=== PATIENT | female | born 1995 | race Caucasian/White ===

== ENCOUNTER → 2019-09-18 | Outpatient (CLI) | payer OTHER ==
--- NOTE | 2019-09-18 18:33 | REP ---
Clinical: Anatomical evaluation. Comparison: None . Findings: Examination demonstrates a single live intrauterine in cephalic presentation. motion is identified by technologist. Placenta is noted anterior and grade II without evidence for placenta previa or abruption. Amniotic fluid volume is normal. Cervix measures 4.2 cm in length and appears closed. No evidence for nuchal cord. Gestational age by current measurements 26 weeks 2 days with DINA 12/23/2019 . FHR equals 153 beats per minute. Estimated weight 949 grams ( 48th percentile). Anatomical assessment demonstrates normal structures including cranium, choroid plexus, cavum, cerebellum/posterior fossa, facial features, lungs, four-chamber heart/ventricular outflow tracts, diaphragm, stomach, cord insertion/three-vessel cord, kidneys/bladder, spine, and extremities. Impression: Single live intrauterine in cephalic presentation demonstrating appropriate estimated weight. Anatomical assessment is complete and normal. No gross abnormalities are identified.
== END ==
LOC: M WHC 09:01
PROVIDERS: ATTEND Advanced Practice Midwife
DX: Z34.02 Encounter for supervision of normal first pregnancy, second trimester (principal); Z36.89 Encounter for other specified antenatal screening; Z3A.26 26 weeks gestation of pregnancy

== ENCOUNTER → 2019-10-02 | Outpatient (REF) | payer OTHER ==
[2019-10-02 14:00] LABS: HEMATOCRIT 32.4 % (36.0-47.0); MEAN CORPUSCULAR HEMOGLOBIN 31.3 pg (27.0-33.0); MEAN CORPUSCULAR VOLUME 92.3 fl (80.0-96.0); PLATELET COUNT, AUTOMATED 218 10^3/uL (150-450); RED BLOOD COUNT 3.51 10^6/uL (4.00-5.40); WHITE BLOOD COUNT 11.1 10^3/uL (4.0-10.0)
[2019-10-02 14:24] LABS: GLUCOSE CHALLENGE TEST 1 HOUR 81 MG/DL (LESS THAN 140)
[2019-10-03 10:21] LABS: HEPATITIS B SURFACE ANTIGEN NEGATIVE (NEGATIVE)
[2019-10-03 10:51] LABS: HIV 1&2 SCREEN CENTAUR NEGATIVE (NEGATIVE)
== END ==
LOC: M PLALAB 11:13
PROVIDERS: ATTEND Advanced Practice Midwife
DX: Z34.02 Encounter for supervision of normal first pregnancy, second trimester (principal)

== ENCOUNTER → 2019-11-19 | Outpatient (REF) | payer OTHER ==
[~2019-11-19] MED LIST: MULTTAB20 PO
== END ==
LOC: M PLALAB 15:38
PROVIDERS: ATTEND Advanced Practice Midwife
DX: Z3A.35 35 weeks gestation of pregnancy (principal)

== ENCOUNTER 2019-12-11 17:47 | Inpatient (IN) | payer OTHER ==
[2019-12-11] VITALS (24 sets, daily range): BP systolic 108–142; BP diastolic 56–92
[~2019-12-11] VITALS: Ht 162.6 cm; Wt 74.3 kg
[2019-12-11] MEDS ORDERED: LACTATED RINGER'S 1000 ML IV STA (18:12)
[2019-12-11 18:53] LABS: HEMOGLOBIN 12.4 g/dl (12.0-15.5); MEAN CORPUSCULAR HEMOGLOBIN 30.3 pg (27.0-33.0); MEAN CORPUSCULAR HGB CONC 34.4 g/dl (32.0-36.5); PLATELET COUNT, AUTOMATED 231 10^3/uL (150-450); RED BLOOD COUNT 4.09 10^6/uL (4.00-5.40); WHITE BLOOD COUNT 13.8 10^3/uL (4.0-10.0)
[2019-12-11] MEDS ORDERED: FENTANYL 2MCG/ML ROPIVACAINE 0.2% IN 0.9% NACL 100ML IVBAG As Ordered ONE (19:03)
[2019-12-11] MEDS ORDERED: OXYTOCIN 30 UNITS IN 0.9% NaCl 500ML IV BAG (J2590) As Ordered ONE (20:07)
--- NOTE | 2019-12-11 22:37 | HPEPDOC ---
Obstetrical History & Physical General Date of Admission Dec 11, 2019 at 18:10 History of Present Illness Miss Josue presents at 39 weeks with complaints of painful contractions. She is a 1, para 0. She denies any vaginal bleeding or leakage of fluid. Her course is remarkable for for transfer of care. Chief Complaint: Contractions, term Information Provided By: Patient Age: 24 : 1 Dating Final EDC: Dec 18, 2019 EGA at Admission: 39 Past Medical History Past Obstetrical History : Past Obstetrical History: [employer] History: No pertinent history Past Medical History Surgical History: Tonsilectomy, Other (surgery on her finger for reattachment) Social History Marital Status: Single Psychosocial History: No pertinent psych hx * Smoker: non-smoker Alcohol: Denies Drugs: denies Allergies Coded Allergies: Sulfa (Sulfonamide Antibiotics) (Verified Allergy, Unknown, Rash, 12/07/19) Medications Scheduled No122/Iron/Folic Acid ( Multi Tablet) 1 Each Tablet, 1 TAB PO DAILY Physical Examination Physical Examination GENERAL: Alert and oriented times three. BREAST: . ABDOMEN: Gravid and non-tender to touch. FETUS: Is vertex (VTX) by sterile vaginal examination (SVE), fetus is vertex (VTX) by Jose. HEART RATE: Regular rate and rhythm. LUNGS: Clear to auscultation (CTA). Vital Signs/I&O Vital Signs Date Time Temp Pulse Resp B/P (MAP) Pulse Ox O2 Delivery O2 Flow Rate FiO2 12/11/19 17:59 99.4 84 20 132/79 (96) Laboratory Data 24H LABS Laboratory Tests 2 12/11/19 18:35: Nucleated Red Blood Cells % (auto) 0.0 12/11/19 18:44: Serology Scanned Report Hepatitis B Testing CBC/BMP Laboratory Tests 12/11/19 18:35 Pertinent Laboratoy Data Blood Type: B+ RBC Antibody Screen: Negative HIV: Negative Hepatitis B: Negative Hepatitis C: Negative Group B Streptococcus: Negative Vaginal Examination Dilation: 5 cm Effacement: 80% Station: -1 Cervical Consistency: Soft Cervical Position: Anterior Presentation: Cephalic presentation Assessment Variability: Moderate Accelerations: Positive Tocometer Frequency: regular Assessment/Plan Assessment 24-year-old 1 at 39 weeks 1 days estimate gestational age here in active labor. Reassuring status Plan Admit and orient. Glove Presser and consent. Diet: Regular. Group B Streptococcus (GBS) negative. Labs and intravenous (IV) per unit protocol. Counseled on Pitocin and induction of labor (IOL). Anticipate normal spontaneous delivery (). C-S as appropriate. LARRY PFEIFFER MD. Dec 11, 2019 22:37
--- NOTE | 2019-12-11 22:38 | IPNPDOC ---
Obstetrical Progress Note Date of Service Dec 11, 2019 Subjective Comfortable following epidural Objective Vital Signs Date Time Temp Pulse Resp B/P (MAP) Pulse Ox O2 Delivery O2 Flow Rate FiO2 12/11/19 17:59 99.4 84 20 132/79 (96) Assessment Variability: Moderate Heart Rate Tracing: Category I Tocometer Contractions: Yes Frequency: regular Sterile Vaginal Examination Dilation: 9 cm Effacement (%): 100% Station: -1, 0 Cervical Consistency: Soft Cervical Position: Anterior (AROM, lightly stained meconium fluid) Postion/Presentation: Cephalic presentation Assessment and Plan Age: 24 : 1 Status: Reassuring Group B Streptococcus: Negative Anticipate: Vaginal Delivery LARRY PFEIFFER MD. Dec 11, 2019 22:38
[2019-12-12] MEDS ORDERED: OXYTOCIN DRIP 30 UNITS in IV 1 EA IV SCH (00:07)
--- NOTE | 2019-12-12 00:11 | DNPDOC ---
[facility] Delivery Note Delivery Note DATE OF DELIVERY: 12/11/2019 TIME OF : 2344 GENDER: Female. APGARS: 8 and 9. WEIGHT: 2930 grams or 6 pounds 7 ounces. LACERATIONS:. Right labial laceration ANESTHESIA: Epidural. ESTIMATED BLOOD LOSS: 300ml COUNTS: 5 laparotomy sponges accounted for prior to after delivery. One sharps removed delivery field. DELIVERY NOTE:. On 12/11/2019 at 2344, Mrs. Josue 24-year-old 1, now para 1, had a spontaneous vaginal delivery of viable female infant, Apgars, 8 and 9. Weight was 2930 g or 6 lbs. 7 oz. Head was delivered occiput anterior (O A), followed by delivery of the shoulders and corpus. Infant was handed to mom with a good cry. Cord was clamped times two and was cut by the father of baby under my direction. Placenta was then drained and delivered grossly intact. A premixed bag of 500 mL of normal saline with 30 units of Pitocin was then bolused along with uterine massage until the uterus was firm. On inspection, there was a right labial laceration which was repaired with 3-0 Vicryl. On reinspection, cervix, vagina, perineum was grossly intact and hemostatic. Mom and baby in recovery on stable condition. The couples decided to remain in daughter, LARRY Rodriguez MD. Dec 12, 2019 00:11
[2019-12-12] MEDS ORDERED: ACETAMINOPHEN 500 MG TAB PO PRN (00:15)
[2019-12-12] MEDS ORDERED: RHOGAM 300 MCG (1500 IU) INJ (J2790) IM SCH (00:15)
[2019-12-12] MEDS ORDERED: METHYLERGONOVINE MALEATE 0.2 MG TAB PO PRN (00:15)
[2019-12-12] MEDS ORDERED: DOCUSATE SODIUM 100 MG CAP PO PRN (00:15)
[2019-12-12] MEDS ORDERED: IBUPROFEN 600MG TAB PO PRN (00:15)
[2019-12-12] MEDS ORDERED: IBUPROFEN 800 MG TAB PO PRN (00:15)
[2019-12-12] MEDS ORDERED: DIBUCAINE 1% OINTMENT 30GM TOP PRN (00:15)
[2019-12-12] MEDS ORDERED: MEASLES,MUMPS,RUBELLA VACCINE INJ (MMR-II) (90707) SC SCH (00:15)
[2019-12-12] MEDS ORDERED: ACETAMINOPHEN TAB 650MG DOSE (2X325MG) PO PRN (00:15)
[2019-12-12] MEDS ORDERED: EPIDURAL/PCA KEYS XX PRN (00:30)
[2019-12-12] MEDS ORDERED: EPIDURAL COMMENT XX SCH (00:30)
[2019-12-12] MEDS ORDERED: diphenhydrAMINE 50MG/ML VIAL (J1200) IV PRN (00:30)
[2019-12-12] MEDS ORDERED: ONDANSETRON 4MG/2ML VIAL IV PRN (00:30)
[2019-12-12] MEDS ORDERED: NALOXONE INJ 0.4MG/1ML VIAL (J2310 PER 1MG) IV PRN (00:30)
[2019-12-12] MEDS ORDERED: ePHEDrine SULFATE 25 MG/5 ML(5MG/ML) SYRINGE IV PRN (00:30)
[2019-12-12] MEDS ORDERED: LACTATED RINGER'S 1000 ML IV PRN (00:30)
[2019-12-12] MEDS ORDERED: REFRIGERATOR IV KEYS XX PRN (00:30)
[2019-12-12 00:54] VITALS: BP 126/79
[2019-12-12] MEDS: FENTANYL/ROPIVACAINE/NACL BAG 100 ML EPIDURAL SCH ×2 (01:00→02:03)
[2019-12-12 01:09] VITALS: BP 115/68
[2019-12-12 01:24] VITALS: BP 118/68
[2019-12-12 02:05] VITALS: BP 129/72
[2019-12-12 06:00] VITALS: BP 101/58
--- NOTE | 2019-12-12 07:27 | IPNPDOC ---
Progress Note Date of Service: Dec 12, 2019 Day#: 1 Progress Note SUBJECT: Doing well without complaints. Ambulating, voiding and pain is well- controlled. Reports minimal lochia. OBJECTIVE: VITAL SIGNS: Within normal limits, afebrile. Alert and oriented times three. Abdomen: Fundus firm at U-2. Soft, NTTP. Ext: neg calf tenderness. ASSESSMENT: day #1 status post normal spontaneous vaginal delivery. Recovering in stable condition. PLAN: 1. Continue routine care 2. Discharge plans for tomorrow VS, I&O, 24H, Fishbone Vital Signs/I&O Vital Signs Date Time Temp Pulse Resp B/P (MAP) Pulse Ox O2 Delivery O2 Flow Rate FiO2 12/12/19 06:00 97.9 87 18 101/58 (72) 12/12/19 02:05 96 Room Air I&O- Last 24 Hours up to 6 AM 12/12/19 06:00 Intake Total 500 ml Output Total 1300 ml Balance -800 ml Laboratory Data 24H LABS Laboratory Tests 2 12/11/19 18:35: Nucleated Red Blood Cells % (auto) 0.0 12/11/19 18:44: Serology Scanned Report Hepatitis B Testing CBC/BMP Laboratory Tests 12/11/19 18:35 LARRY PFEIFFER MD. Dec 12, 2019 07:26
[2019-12-12] MEDS: PRENATAL VITAMINS CHEWABLE TABLET PO SCH (08:42)
[2019-12-12 18:00] VITALS: BP 118/66
[2019-12-13 06:00] VITALS: BP 106/63
[2019-12-13] MEDS: PRENATAL VITAMINS CHEWABLE TABLET PO SCH (09:00)
== END 2019-12-13 17:50 | disposition home or self-care (01) | DRG 560 ==
LOC: M LDO 17:47 → M LDI 18:10 → M OBS 12-12 06:33
PROVIDERS: ADMIT Obstetrics & Gynecology; ATTEND Obstetrics & Gynecology
PROC: 10E0XZZ Delivery of Products of Conception, External Approach (ICD-10-PCS; principal; 2019-12-11)
PROC: 0HQ9XZZ Repair Perineum Skin, External Approach (ICD-10-PCS; 2019-12-11)
DX: O70.0 First degree perineal laceration during delivery (principal); Z37.0 Single live birth; Z3A.39 39 weeks gestation of pregnancy